=== PATIENT | female | born 1940 | race Caucasian/White ===

== ENCOUNTER 2019-02-13 14:54 | Outpatient (CLI) | payer MEDICARE, OTHER ==
[~2019-02-13 14:54] MED LIST: ASPIRIN 81M81 MG/TA2 PO; GLUCOSAMINE & C1 TAB PO; NORCO 325 MG-51 TAB PO; PRILOSEC OTC20 MG PO; TOPAMAX25 MG PO; ZIAC 10/6.25M1 UDTAB PO
[2019-02-13 15:30] VITALS: BP 122/53; PULSE 68; TEMP 98.2
[2019-02-13] MEDS ORDERED: COZAAR100 MG PO (15:32)
[2019-02-13] MEDS ORDERED: NORVASC2.5 MG PO (15:33)
[2019-02-13] MEDS ORDERED: LIPITOR 10MG10 MG PO (15:33)
[2019-02-13] MEDS ORDERED: IMITREX50 MG PO (15:34)
[2019-02-13] MEDS ORDERED: FISH OIL 1000MG1 CAP PO (15:34)
[2019-02-13] MEDS ORDERED: RETIN-A0.025% TP (15:35)
== END 2019-02-13 15:40 | disposition home or self-care (01) ==
LOC: EUO 14:54
DX: M81.0 Age-related osteoporosis without current pathological fracture (principal)
CPT/HCPCS: J0897